=== PATIENT | female | born 1995 | race Caucasian/White ===

== ENCOUNTER 2016-11-30 23:20 | Emergency (ER) | payer SELFPAY ==
[~2016-11-30] VITALS: Ht 152.4 cm; Wt 67.0 kg
[~2016-11-30 23:20] MED LIST: ALBU8.5H3 INH; MONT5TAB12 PO; PRED20TA PO
[2016-11-30 23:23] VITALS: Ht 152.4 cm; Wt 67.0 kg
== END 2016-12-01 02:26 | disposition left against medical advice (07) ==
LOC: FTE 23:20
DX: Z53.21 Procedure and treatment not carried out due to patient leaving prior to being seen by health care provider (principal)

== ENCOUNTER 2016-12-04 16:54 | Emergency (ER) | payer OTHER ==
[~2016-12-04] VITALS: Wt 68.5 kg
[2016-12-04] MEDS ORDERED: ALBUTEROL 0.083% (NEB) 2.5 MG/3 ML AMP HHN ONE (17:30)
[2016-12-04] MEDS ORDERED: DEXAMETHASONE 10 MG/ML 1 ML INJ IM ONE (17:30)
[2016-12-04] MEDS ORDERED: IPRATROPIUM (NEB) 0.5 MG/2.5 ML AMP HHN ONE (17:30)
--- NOTE | 2016-12-04 17:43 | ERD ---
ER Documentation Chief Complaint Date/Time DATE: 12/04/16 TIME: 17:40 Chief Complaint COUGH, SOB, HX OF ASTHMA HPI Patient is a 21-year-old female who presents to the ED with cough and wheezing for 2 days. She states that she has a history of asthma and took her friend's albuterol yesterday which helped with her symptoms. However she is still complaining of cough and wheeze. She denies shortness of breath or difficulty breathing. She denies headache or dizziness. She denies sore throat or runny nose. Denies leg pain or swelling. Denies recent travel, recent surgery or use of OCPs. Patient also like a refill on her albuterol. No other complaints. ROS All systems reviewed and are negative except as per history of present illness. Medications Home Meds Active Scripts Albuterol Sulfate* (Proair HFA*) 8.5 Gm Hfa.aer.ad, 2 PUFF INH Q4, #2 INHALER Prov:SANJEEV JOYCE PA-C 12/04/16 Montelukast Sodium* (Singulair*) 5 Mg Tab.chew, 5 MG PO DAILY, #30 TAB Prov:MITCH GERONIMO PA-C 01/22/16 Albuterol Sulfate* (Proair HFA*) 8.5 Gm Hfa.aer.ad, 2 PUFF INH Q4, #1 INHALER Prov:MITCH GERONIMO PA-C 01/22/16 Prednisone* (Prednisone*) 20 Mg Tab, 40 MG PO DAILY for 4 Days, TAB Prov:MITCH GERONIMO PA-C 01/22/16 Allergies Allergies: Coded Allergies: Sulfa (Sulfonamides) (Verified Allergy, Intermediate, HIVES, RASH, 12/18/06) PMhx/Soc Medical and Surgical Hx: pt denies Surgical Hx History of Surgery: No Anesthesia Reaction: No Hx Neurological Disorder: No Hx Respiratory Disorders: No Hx Cardiac Disorders: No Hx Psychiatric Problems: No Hx Miscellaneous Medical Probl: Yes (ASTHMA) Hx Alcohol Use: No Hx Substance Use: No Hx Tobacco Use: No Smoking Status: Never smoker FmHx Family History: No coronary disease, No diabetes, No other Physical Exam Vitals Vital Signs Date Time Temp Pulse Resp B/P Pulse Ox O2 Delivery O2 Flow Rate FiO2 12/04/16 18:38 98.1 108 19 124/63 96 Room Air 12/04/16 17:45 95 18 96 21 12/04/16 16:58 98.5 96 17 131/73 96 Physical Exam GENERAL: Well-developed, well-nourished female. Appears in no acute distress. HEAD: Normocephalic, atraumatic. EYES: Pupils are equally reactive bilaterally. EOMs grossly intact. No conjunctival erythema. ENT: Moist mucous membranes. No uvula deviation. No kissing tonsils. No exudates. NECK: Supple. No lymphadenopathy or thyromegaly. No meningismus. negative kernig. negative brudinski. LUNG: Clear to auscultation bilaterally. No rhonchi, rales or coarse breath sounds. Wheezing in all lung wallis. No retractions or signs of respiratory distress. No nasal flaring. Speaking in full sentences. HEART: Regular rate and rhythm. No murmurs, rubs or gallops. Extremities: Equal pulses bilaterally. No peripheral clubbing, cyanosis or edema. No unilateral leg swelling. Negative Homans sign SKIN: Normal color. Warm and dry. No rashes or lesions. Capillary refill < 2 seconds Results 24 hrs Current Medications Medications (Trade) Dose Ordered Sig/Miguel Route PRN Reason Start Time Stop Time Status Last Admin Dose Admin Albuterol (Proventil 0.083% (Neb)) 5 mg ONCE ONCE HHN 12/04/16 17:30 12/04/16 17:35 DC 12/04/16 17:44 Ipratropium Panaca (Atrovent 0.02% (Neb)) 0.5 mg ONCE ONCE HHN 12/04/16 17:30 12/04/16 17:35 DC 12/04/16 17:44 Dexamethasone (Decadron) 10 mg ONCE ONCE IM 12/04/16 17:30 12/04/16 17:35 DC 12/04/16 17:44 Procedures/MDM ER COURSE: I kept the patient and/or family informed of laboratory and diagnostic imaging results throughout the emergency room course. EKG, MONITORS, & DIAGNOSTIC IMAGING: [place] [id number] Radiology Main Line: [phone] DIAGNOSTIC IMAGING REPORT Patient: PAUL MURRAY : 1995 Age: 21 Sex: F MR #: [id number] DOS: 12/04/16 1730 Ordering MD: SANJEEV JOYCE PA-C Location: [facility] Room/Bed: PROCEDURE: XR Chest. CLINICAL INDICATION: chest pain, cough TECHNIQUE: Single frontal view of the chest was obtained COMPARISON: None FINDINGS: The heart and mediastinum are within normal limits. The lungs are clear. There is no pleural effusion or pneumothorax. RPTAT: AA IMPRESSION: No acute disease. .Marin Gregorio MD, MD Date Time Electronically viewed and signed by .Marin Grgeorio MD, on 12/04/2016 18: 00 .S/ CC: SANJEEV JOYCE PA-C PROCEDURES: RT consult, albuterol and atrovent given in the ED with improvement in symptoms. Decadron 10 mg IM given with no complications. MEDICAL DECISION MAKING: This is a 21-year-old female with a history of asthma who presents with cough, wheeze. Vital signs were reviewed. Patient is afebrile. Patient is not hypoxic. Patient oxygen saturation is 96 prior to breathing treatment. Wheezing heard in all lung wallis, with no signs of respiratory distress, nasal flaring or retractions. Patient speaking in full sentences. Low suspicion for pneumonia, PE, pneumothorax, ACS, epiglottitis, obstruction, TB, pertussis, meningitis, sepsis. Patient's lung examination after breathing treatment was improved. Wheezing has diminished. DISCHARGE: At this time, patient is stable for discharge and outpatient management with no new complaints during the ER course. Patient was sent home with albuterol. Patient will be discharged home with instructions to recheck for new or worsening symptoms such as fever, nausea, weakness, LOC and to follow up with primary care in the next 1-2 days. Patient was advised to return to the ER for any new or worsening symptoms. Plan was discussed and patient and/or family understands and agrees. Home instructions were given. Departure Diagnosis: Primary Impression: Asthma exacerbation Condition: Stable SANJEEV JOYCE PA-C Dec 04, 2016 17:43
--- NOTE | 2016-12-04 18:00 | RADRPT ---
PROCEDURE: XR Chest. CLINICAL INDICATION: chest pain, cough TECHNIQUE: Single frontal view of the chest was obtained COMPARISON: None FINDINGS: The heart and mediastinum are within normal limits. The lungs are clear. There is no pleural effusion or pneumothorax. RPTAT: AA IMPRESSION: No acute disease. .Marin Gregorio MD, MD Date Time Electronically viewed and signed by .Marin Gregorio MD, on 12/04/2016 18:00 .S/
[2016-12-04] MEDS ORDERED: ALBU8.5H3 INH (18:24)
[2016-12-04 18:38] VITALS: BP 124/63; PULSE 108; RESP 19; TEMP 98.1
== END 2016-12-04 18:38 | disposition home or self-care (01) ==
LOC: FTE 16:54
DX: J45.901 Unspecified asthma with (acute) exacerbation (principal)
CPT/HCPCS: 71010; 94664; 96372; J1100; Z7502; Z7610

== ENCOUNTER 2017-01-09 22:56 | Emergency (ER) | payer OTHER ==
[~2017-01-09] VITALS: Ht 157.5 cm; Wt 68.0 kg
[2017-01-09 23:02] VITALS: Ht 157.5 cm; Wt 68.0 kg
--- NOTE | 2017-01-09 23:34 | ERD ---
ER Documentation Chief Complaint Date/Time DATE: 01/09/17 TIME: 23:32 Chief Complaint cough x 2 weeks HPI 21-year-old female presents to emergency department for complaint of cough for 2 weeks, has been having on and off wheezing, has history of asthma. Patient has been having dry cough, does not cough up any phlegm or blood. Patient does not have any fever or chills. Patient does not complain of ear pain. Patient does not have any sick contacts. Patient does not have any chest pain or palpitations. Patient has have runny nose nasal congestion with clear nasal discharge. Patient has been using her inhaler to help with symptoms which helps. ROS All systems reviewed and are negative except as per history of present illness. Medications Home Meds Active Scripts Albuterol Sulfate* (Proair HFA*) 8.5 Gm Hfa.aer.ad, 2 PUFF INH Q4, #2 INHALER Prov:SANJEEV JOYCE PA-C 12/04/16 Montelukast Sodium* (Singulair*) 5 Mg Tab.chew, 5 MG PO DAILY, #30 TAB Prov:MITCH GERONIMO PA-C 01/22/16 Albuterol Sulfate* (Proair HFA*) 8.5 Gm Hfa.aer.ad, 2 PUFF INH Q4, #1 INHALER Prov:MITCH GERONIMO PA-C 01/22/16 Prednisone* (Prednisone*) 20 Mg Tab, 40 MG PO DAILY for 4 Days, TAB Prov:MITCH GERONIMO PA-C 01/22/16 Allergies Allergies: Coded Allergies: Sulfa (Sulfonamides) (Verified Allergy, Intermediate, HIVES, RASH, 12/18/06) PMhx/Soc Medical and Surgical Hx: pt denies Surgical Hx History of Surgery: No Anesthesia Reaction: No Hx Neurological Disorder: No Hx Respiratory Disorders: No Hx Cardiac Disorders: No Hx Psychiatric Problems: No Hx Miscellaneous Medical Probl: Yes (ASTHMA) Hx Alcohol Use: No Hx Substance Use: No Hx Tobacco Use: No Smoking Status: Never smoker FmHx Family History: No coronary disease, No diabetes, No other Physical Exam Vitals Vital Signs Date Time Temp Pulse Resp B/P Pulse Ox O2 Delivery O2 Flow Rate FiO2 01/09/17 23:02 97.8 76 20 105/76 100 Physical Exam GENERAL: The patient is well developed and appropriate for usual state of health, in no apparent distress. CHEST: Clear to auscultation bilaterally. There are no rales, wheezes or rhonchi. HEART: Regular rate and rhythm. No murmurs, clicks, rubs or gallops. No S3 or S4. ABDOMEN: Soft, nontender and nondistended. Good bowel sounds. No rebound or guarding. No gross peritonitis. No gross organomegaly or masses. No Garcia sign or McBurney point tenderness. BACK: No midline or flank tenderness. EXTREMITIES: Equal pulses bilaterally. There is no peripheral clubbing, cyanosis or edema. No focal swelling or erythema. Full range of motion. Grossly neurovascularly intact. NEURO: Alert and oriented. Cranial nerves 2-12 intact. Motor strength in all 4 extremities with 5/5 strength. Sensation grossly intact. Normal speech and gait. SKIN: There is no apparent rash or petechia. The skin is warm and dry. HEMATOLOGIC AND LYMPHATIC: There is no evidence of excessive bruising or lymphedema. No gross cervical, axillary, or inguinal lymphadenopathy. Results 24 hrs PROCEDURE: XR Chest. CLINICAL INDICATION: Cough for 2 weeks. TECHNIQUE: Portable AP view of the chest was obtained. COMPARISON: 12/04/2016 FINDINGS: The cardiomediastinal silhouette is within normal limits. Interval development of mild peribronchial thickening is concerning for bronchitis but there is no evidence of lobar infiltrate. There is no evidence for pleural effusion, pneumothorax or pulmonary vascular congestion. The osseous structures are intact with no evidence for acute abnormality. RPTAT:HJJR IMPRESSION: Interval development of mild peribronchial thickening compared with 12/04/2016 concerning for bronchitis without evidence of lobar infiltrate. Physician Jonnie Date Time Electronically viewed and signed by Physician Jonnie on 01/09/2017 23:50 JR/ CC: JESUS DOWNS [employer] Procedures/MDM Medical Decision Making: Patient symptoms are most likely consistent with acute bronchitis with possible wheezing from allergic rhinitis, it can be also viral. Patient's bronchitis can be also from atypical infection, consider patient is asthmatic, high risk, will be treated with oral antibiotics. There is low suspicion for Pneumonia at this time since patients lungs sounds are clear, patient O2 saturation is normal and patient doesnt show any respiratory distress. Patients chest xray doesnt show infiltrates or any other cardiopulmonary emergencies at this time. There is low suspicion for other cardiopulmonary emergencies at this time such as CHF, Pulmonary Embolism, Pneumothorax, Aortic Aneurysm or any other cardiopulmonary emergencies at this time. There is low suspicion for sepsis. Patient appears well and is hemodynamically stable. Patient does not have any fever. Disposition: Home. Condition: Stable Prescriptions: Qvar, albuterol, guaifenesin DM Zyrtec Flonase azithromycin Instructions: Patient is advised to take medications as prescribed. Patient is advised to rest. Patient advised to increase fluid intake, do humidifier at home and if possible, do salt water gargles. Patient is advised that if symptoms are worse, shortness of breath, uncontrolled fever, stridor, vomiting, worst signs and symptoms to return to emergency department immediately. Otherwise, patient is advised to follow up with primary doctor in 5-7 days. Departure Diagnosis: Primary Impression: Acute bronchitis Bronchitis organism: unspecified organism Qualified Code: J20.9 - Acute bronchitis, unspecified organism Additional Impression: Allergic rhinitis Allergic rhinitis seasonality: unspecified seasonality Allergic rhinitis trigger: unspecified Qualified Code: J30.9 - Allergic rhinitis, unspecified allergic rhinitis trigger, unspecified rhinitis seasonality Condition: Stable Patient Instructions: Allergic Rhinitis, Bronchitis With Wheezing (Adult) Additional Instructions: Patient is advised to take medications as prescribed. Patient is advised to rest. Patient advised to increase fluid intake, do humidifier at home and if possible, do salt water gargles. Patient is advised that if symptoms are worse, shortness of breath, uncontrolled fever, stridor, vomiting, worst signs and symptoms to return to emergency department immediately. Otherwise, patient is advised to follow up with primary doctor in 5-7 days. JESUS DOWNS NP Jan 09, 2017 23:34
--- NOTE | 2017-01-09 23:51 | RADRPT ---
PROCEDURE: XR Chest. CLINICAL INDICATION: Cough for 2 weeks. TECHNIQUE: Portable AP view of the chest was obtained. COMPARISON: 12/04/2016 FINDINGS: The cardiomediastinal silhouette is within normal limits. Interval development of mild peribronchia l thickening is concerning for bronchitis but there is no evidence of lobar infiltrate. There is no evidence for pleural effusion, pneumothorax or pulmonary vascular congestion. The osseous structur es are intact with no evidence for acute abnormality. RPTAT:HJJR IMPRESSION: Interval development of mild peribronchial thickening compared with 12/04/2016 concerning for bronch itis without evidence of lobar infiltrate. Physician Jonnie Date Time Electronically viewed and signed by Physician Jonnie on 01/09/2017 23:50 JR/
[2017-01-10] MEDS ORDERED: CETI10CA PO (00:02)
[2017-01-10] MEDS ORDERED: QVAR40 INH (00:02)
[2017-01-10] MEDS ORDERED: AZIT250T94 PO (00:02)
[2017-01-10] MEDS ORDERED: ALBU8.5H3 INH (00:02)
[2017-01-10] MEDS ORDERED: GUAI120S26 PO (00:02)
[2017-01-10] MEDS ORDERED: FLUT9.9S NASAL (00:02)
[2017-01-10 01:08] VITALS: BP 124/63; PULSE 90; RESP 17; TEMP 97.8
== END 2017-01-10 01:08 | disposition home or self-care (01) ==
LOC: FTE 22:56
DX: J20.9 Acute bronchitis, unspecified (principal); J30.9 Allergic rhinitis, unspecified
CPT/HCPCS: 71010; Z7502